=== PATIENT | male | born 2000 | race Hispanic/Latino ===

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

== ENCOUNTER 2018-02-18 18:02 | Emergency (ER) | payer SELFPAY ==
[2018-02-18] MEDS ORDERED: Acetaminophen 500 MG TAB ONE (18:59)
[2018-02-18] MEDS ORDERED: Ondansetron ODT 4 MG TAB ONE (18:59)
== END 2018-02-18 20:14 | disposition home or self-care (01) ==
LOC: ERS 18:02
DX: R51 Headache (principal); R11.0 Nausea; V43.92XA Unspecified car occupant injured in collision with other type car in traffic accident, initial encounter
CPT/HCPCS: 99283; Q0162

== ENCOUNTER 2018-04-27 12:04 | Emergency (ER) | payer SELFPAY ==
--- NOTE | 2018-04-27 13:40 | RAD ---
LEFT KNEE 4 VIEWS: Date: 04/27/18 HISTORY: Fall on knee yesterday. FINDINGS: There is some minimal early spur formation at the patellofemoral joint space. There are no signs of f racture, dislocation, or joint effusion. IMPRESSION: No evidence of acute injury. POS: [facility]
[2018-04-27] MEDS ORDERED: Bacitracin Zinc 1 Packet ONE (13:59)
[2018-04-27] MEDS ORDERED: Ibuprofen 800 MG TAB ONE (13:59)
[2018-04-27] MEDS ORDERED: Adacel (T-DAP) 0.5 ML VIAL ONE (14:00)
== END 2018-04-27 14:20 | disposition home or self-care (01) ==
LOC: ERS 12:04
DX: S80.02XA Contusion of left knee, initial encounter (principal); Z71.6 Tobacco abuse counseling; F17.210 Nicotine dependence, cigarettes, uncomplicated; W11.XXXA Fall on and from ladder, initial encounter
CPT/HCPCS: 90471; 90715; 99406